=== PATIENT | male | born 1970 | race Caucasian/White ===

== ENCOUNTER → 2017-03-17 | Outpatient (CLI) | payer OTHER ==
[~2017-03-17] MED LIST: EPP3/2 IM; ZNTT/150 PO
--- NOTE | 2017-03-17 13:41 | DIAGNOSTIC IMAGING REPORT ---
CT LEFT ANKLE NO CONTRAST CT DOSE: 215.82 mGy.cm CLINICAL HISTORY: Chronic left ankle pain TECHNIQUE: Helical images were acquired in the transverse plane. Sagittal and coronal reformatted images were acquired. COMPARISON STUDY: 07/16/2014 FINDINGS: No acute fractures are visualized. There is an old healed internally fixated medial malleolar fracture. There are no subluxations. No destructive lesions are visualized. There is subchondral cystic changes within the middle cuneiform. IMPRESSION: 1. Old healed internally fixated medial malleolar fracture 2. No acute fractures. 3. No evidence of significant arthritic change Electronically signed by: Kalyan Warren M.D. 03/17/2017 1:39 PM Dictated Date/Time: 03/17/2017 1:34 PM
== END | disposition home or self-care (01) ==
LOC: C.CTS 12:27
PROVIDERS: ATTEND Physician Assistant
DX: M25.572 Pain in left ankle and joints of left foot (principal); Z87.828 Personal history of other (healed) physical injury and trauma